=== PATIENT | male | born 1980 | race Hispanic/Latino ===

== ENCOUNTER 2019-07-19 09:03 | Emergency (ER) | payer OTHER ==
[2019-07-19 09:33] LABS: BASOPHILS % (AUTO) 0.3 % (0.0-5.0); EOSINOPHILS % (AUTO) 3.3 % (0.0-8.0); HEMATOCRIT 42.8 % (42-54); LYMPHOCYTES % (AUTO) 37.3 % (21.0-51.0); MEAN CORPUSCULAR HEMOGLOBIN 32.1 pg (27.0-33.0); MEAN CORPUSCULAR HGB CONC 34.8 g/dL (32.0-36.0); MEAN CORPUSCULAR VOLUME 92.2 fL (79-99); MONOCYTES % (AUTO) 9.1 % (3.0-13.0); NEUTROPHILS % (AUTO) 49.7 % (40.0-77.0); PLATELET COUNT (AUTO) 252 K/uL (130-400); RED BLOOD CELL COUNT(AUTO) 4.64 MIL/uL (4.50-6.20); RED CELL DISTRIBUTION WIDTH 11.8 % (11.0-15.5); WHITE BLOOD COUNT (AUTO) 6.4 K/uL (4.8-10.8)
[2019-07-19 09:34] LABS: APPEARANCE,URINE Clear (CLEAR); BILIRUBIN,URINE Negative (NEGATIVE); COLOR,URINE Yellow (YELLOW); GLUCOSE, URINE (UA) Negative (NEGATIVE); KETONES,URINE Negative (NEGATIVE); LEUKOCYTE ESTERASE ,URINE Negative (NEGATIVE); NITRATE,URINE Negative (NEGATIVE); OCCULT BLOOD,URINE Negative (NEGATIVE); PROTEIN,URINE Negative (NEGATIVE); UROBILINOGEN,URINE 0.2 mg/dL (0.2-1.0)
[2019-07-19 09:43] LABS: CREATININE 1.1 mg/dL (0.5-1.5); POTASSIUM 4.2 mmol/L (3.5-5.1)
[2019-07-19 09:49] LABS: ALBUMIN 4.1 g/dL (3.5-5.0); BILIRUBIN,TOTAL 0.4 mg/dL (0.2-1.0); TOTAL PROTEIN, SERUM 7.4 g/dL (6.0-8.3)
[2019-07-19] MEDS ORDERED: KETOROLAC TROMETHAMINE 30MG/ML ONE ×2 (09:54→09:59)
[2019-07-19] MEDS ORDERED: ONDANSETRON HCL 4 MG/2 ML VIAL ONE ×2 (09:54→09:59)
[2019-07-19] MEDS ORDERED: SODIUM CHLORIDE 0.9% 1000ML 0 ML IV ONE (09:54)
[2019-07-19] MEDS ORDERED: SODIUM CHLORIDE 0.9% 1000ML 1,000 ML IV ONE (10:00)
[2019-07-19] MEDS ORDERED: IOHEXOL-350 75 ML VIAL IV ONE (10:51)
== END 2019-07-19 11:40 | disposition home or self-care (01) ==
LOC: EDH 09:03
DX: K59.00 Constipation, unspecified (principal); K57.92 Diverticulitis of intestine, part unspecified, without perforation or abscess without bleeding; Z72.0 Tobacco use
CPT/HCPCS: 36415; 74177; 80053; 81003; 85025; 96374; 96375; 99285; J1885 ×2; J2405 ×2; J7030; Q9967

== ENCOUNTER 2019-10-09 09:12 | Emergency (ER) | payer SELFPAY ==
[2019-10-09] MEDS ORDERED: SODIUM CHLORIDE 0.9% 1000ML 1,000 ML IV ONE (09:48)
[2019-10-09] MEDS ORDERED: ONDANSETRON HCL 4 MG/2 ML VIAL ONE (09:48)
[2019-10-09] MEDS ORDERED: KETOROLAC TROMETHAMINE 30MG/ML ONE (09:48)
[2019-10-09 09:50] LABS: AMPHET/METH SCREEN,URINE NEGATIVE (NEGATIVE); BARBITURATE SCREEN, URINE NEGATIVE (NEGATIVE); BENZODIAZEPINES SCREEN,URINE POSITIVE (NEGATIVE); CANNABINOID SCREEN,URINE POSITIVE (NEGATIVE); COCAINE SCREEN,URINE NEGATIVE (NEGATIVE); OPIATE SCREEN,URINE NEGATIVE (NEGATIVE); PHENCYCLIDINE SCREEN,URINE NEGATIVE (NEGATIVE)
[2019-10-09 09:58] LABS: APPEARANCE,URINE Clear (CLEAR); BILIRUBIN,URINE Negative (NEGATIVE); COLOR,URINE Dark Yellow (YELLOW); GLUCOSE, URINE (UA) Negative (NEGATIVE); KETONES,URINE Trace mg/dL (NEGATIVE); LEUKOCYTE ESTERASE ,URINE Trace (NEGATIVE); NITRATE,URINE Negative (NEGATIVE); OCCULT BLOOD,URINE Negative (NEGATIVE); PROTEIN,URINE Negative (NEGATIVE)
[2019-10-09 10:05] LABS: BACTERIA,URINE Rare /HPF (None Seen); MUCUS,URINE Many LPF (None Seen); RBC,URINE 0-1 /HPF (0-1); SQUAMOUS EPITHELIAL CELL,UR Rare /HPF (0-2); WBC,URINE 0-1 /HPF (0-1)
[2019-10-09 10:22] LABS: BASOPHILS % (AUTO) 0.6 % (0.0-5.0); HEMATOCRIT 46.3 % (42-54); LYMPHOCYTES % (AUTO) 25.5 % (21.0-51.0); MEAN CORPUSCULAR HEMOGLOBIN 33.1 pg (27.0-33.0); MEAN CORPUSCULAR HGB CONC 35.9 g/dL (32.0-36.0); MEAN CORPUSCULAR VOLUME 92.2 fL (79-99); MONOCYTES % (AUTO) 6.5 % (3.0-13.0); NEUTROPHILS % (AUTO) 66.2 % (40.0-77.0); PLATELET COUNT (AUTO) 257 K/uL (130-400); RED BLOOD CELL COUNT(AUTO) 5.02 MIL/uL (4.50-6.20); RED CELL DISTRIBUTION WIDTH 12.1 % (11.0-15.5); WHITE BLOOD COUNT (AUTO) 6.2 K/uL (4.8-10.8)
[2019-10-09 10:35] LABS: CREATININE 1.1 mg/dL (0.5-1.5); POTASSIUM 3.5 mmol/L (3.5-5.1)
[2019-10-09 10:39] LABS: ALBUMIN 4.5 g/dL (3.5-5.0); BILIRUBIN,DIRECT 0.1 mg/dL (0.0-0.3); BILIRUBIN,TOTAL 0.8 mg/dL (0.2-1.0); TOTAL PROTEIN, SERUM 7.8 g/dL (6.0-8.3)
== END 2019-10-09 12:10 | disposition home or self-care (01) ==
LOC: EDH 09:12
DX: F12.10 Cannabis abuse, uncomplicated (principal); R10.31 Right lower quadrant pain; R10.11 Right upper quadrant pain; Z72.0 Tobacco use
CPT/HCPCS: 36415; 74176; 80048; 80076; 80305; 81001; 82550; 83690; 85025; 96374; 96375; 99284; J1885; J2405; J7030

== ENCOUNTER 2025-01-18 10:20 | Emergency (ER) | payer BC ==
[~2025-01-18] VITALS: Ht 177.8 cm; Wt 86.2 kg
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
[2025-01-18] MEDS: AMOX/CLAV 875/125MG TAB PO ONE (10:52)
[2025-01-18] MEDS: NEOMY SULF/BACITRA/POLYMYXIN B 1 EACH PACKET TP ONE (10:52)
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
[2025-01-18] MEDS: LIDOCAINE HCL 1% 20 ML VIAL INJ ONE (11:40)
[2025-01-18] MEDS ORDERED: AMOX1TAB16 PO (11:48)
[2025-01-18] MEDS ORDERED: IBUP-2071 PO (11:48)
--- NOTE | 2025-01-18 12:19 | NUR ---
DC PATIENT WAS DC'D BY KAYLAN CARRILLO SHUTTLE VAN DRIVER I EXPLAINED TO PATIENT TO FOLOW UP WITH PCP, PROVIDED INFO BASED ON DIAGNOSIS, PRESCRIPTIONS, AND ANSWERED ANY FOLLOW UP QUESTIONS, PATIENT AMBULATEDOUT OF ED, NO COMPLICATIONS
[2025-01-18 12:20] VITALS: BP 129/93; PULSE 62; RESP 17; TEMP 98.3; O2SAT 98
== END 2025-01-18 12:19 | disposition home or self-care (01) ==
LOC: EDH 10:20
DX: S51.831A Puncture wound without foreign body of right forearm, initial encounter (principal); W54.0XXA Bitten by dog, initial encounter; Y93.89 Activity, other specified; Y92.89 Other specified places as the place of occurrence of the external cause; Y99.8 Other external cause status
CPT/HCPCS: 12002; 99283